=== PATIENT | male | born 1935 | race Caucasian/White ===

== ENCOUNTER 2016-11-18 23:47 | Emergency (ER) | payer OTHER, MEDICARE ==
[~2016-11-18] VITALS: Ht 188 cm; Wt 92.7 kg
[~2016-11-18 23:47] MED LIST: AMMONIUM LACTA140 GM TP; ASACOL400 MG PO; CELEBREX200 MG PO; CIPRO500 MG PO; COLACE100 MG PO; ENDOCET 5-3251 EACH PO; Flexeril PO; HYOSCYAMINE0.125 M1 SL; Kenalog,Aristocort 0 TP; NEXIUM 24HR20 MG PO; TRAMADOL HCL50 MG PO; ZANTAC150 MG PO; [UNRECOGNIZED DRUG - OTHER] TP
[2016-11-19 00:01] VITALS: BP 154/90
[2016-11-19 01:22] LABS: MCH 30.8 PG (29.0-34.0); MCHC 34.1 G/DL (30.0-36.0); MCV 90.3 FL (86-99); MEAN PLAT.VOLUME 10.9 uM^3 (9.0-12.4); PLATELET COUNT 191 K/uL (156-360); RBC DIS.WIDTH-CV 12.6 % (11.8-14.6); RBC DIS.WIDTH-SD 42.1 % (39-53); RED BLOOD COUNT 4.32 M/uL (4.00-5.50); WHITE BLOOD COUNT 8.9 K/uL (4.1-10.2)
[2016-11-19 01:37] LABS: CHLORIDE 102 mEq/L (99-109); POTASSIUM 4.6 mEq/L (3.7-5.4); SODIUM 134 mEq/L (136-147)
[2016-11-19 01:39] LABS: GLUCOSE 122 mg/dL (70-99)
[2016-11-19 01:40] LABS: ANION GAP 9 MEQ/L (2-14)
[2016-11-19 01:41] LABS: TOTAL BILIRUBIN 0.4 mg/dL (0.0-1.0)
[2016-11-19 01:42] LABS: ALKALINE PHOSPHATASE 79 IU/L (3-129)
[2016-11-19 01:43] LABS: GFR ESTIMATE (CALCULATED) > 59 mL/min/
[2016-11-19 01:44] LABS: UREA NITROGEN (BUN) 22 mg/dL (9-23)
[2016-11-19 01:46] LABS: LIPASE 19 U/L (1.0-51.0)
[2016-11-19 01:48] LABS: ADD MIUA? YES; BILIRUBIN NEGATIVE; BLOOD NEGATIVE; COLOR YELLOW ((YELLOW)); GLUCOSE (STRIP) NEGATIVE; KETONES NEGATIVE; LEUKOCYTES NEGATIVE; NITRITE NEGATIVE; PROTEIN (STRIP) NEGATIVE; SPECIFIC GRAVITY 1.024 (1.000-1.030); UROBILINOGEN 0.2 MG/DL (0.2-1.0)
[2016-11-19 02:06] LABS: BACTERIA RARE /HPF; EPITHELIAL CELLS NONE SEEN /HPF; MUCUS TRACE /LPF; RED BLOOD CELLS 0-5 /HPF (0-5); UCUL ADDED? NO; WHITE BLOOD CELLS 0-5 /HPF (0-5)
[2016-11-19] MEDS ORDERED: BENTYL20 MG PO (03:04)
== END 2016-11-19 03:26 | disposition home or self-care (01) ==
LOC: EME 23:47
PROVIDERS: Emergency Medicine
DX: R10.84 Generalized abdominal pain (principal); K58.9 Irritable bowel syndrome, unspecified; I10 Essential (primary) hypertension; K57.30 Diverticulosis of large intestine without perforation or abscess without bleeding; K44.9 Diaphragmatic hernia without obstruction or gangrene; Z98.1 Arthrodesis status; Z87.891 Personal history of nicotine dependence
CPT/HCPCS: 74177; 80053; 81003; 83605; 83690; 85027; 99281; 99285; J2405; J7030

== ENCOUNTER 2016-12-18 18:29 | Emergency (ER) | payer OTHER, MEDICARE ==
[~2016-12-18] VITALS: Ht 188 cm; Wt 91.1 kg
[~2016-12-18 18:29] MED LIST changes: +BENTYL20 MG PO
[2016-12-18 19:17] LABS: HEMATOCRIT 38.2 % (38.0-50.0); MCH 30.8 PG (29.0-34.0); MCHC 35.1 G/DL (30.0-36.0); MCV 87.8 FL (86-99); MEAN PLAT.VOLUME 10.3 uM^3 (9.0-12.4); PLATELET COUNT 197 K/uL (156-360); RBC DIS.WIDTH-CV 12.9 % (11.8-14.6); RBC DIS.WIDTH-SD 41.5 % (39-53); RED BLOOD COUNT 4.35 M/uL (4.00-5.50); WHITE BLOOD COUNT 9.4 K/uL (4.1-10.2)
[2016-12-18 19:25] LABS: CHLORIDE 96 mEq/L (99-109); POTASSIUM 3.9 mEq/L (3.7-5.4); SODIUM 129 mEq/L (136-147)
[2016-12-18 19:26] LABS: GLUCOSE 101 mg/dL (70-99)
[2016-12-18 19:28] LABS: ANION GAP 14 MEQ/L (2-14)
[2016-12-18 19:30] LABS: GFR ESTIMATE (CALCULATED) > 59 mL/min/
[2016-12-18 19:31] LABS: UREA NITROGEN (BUN) 16 mg/dL (9-23)
[2016-12-18 20:19] LABS: ADD MIUA? YES; BILIRUBIN NEGATIVE; BLOOD NEGATIVE; COLOR YELLOW ((YELLOW)); GLUCOSE (STRIP) NEGATIVE; KETONES 20; LEUKOCYTES NEGATIVE; NITRITE NEGATIVE; PROTEIN (STRIP) NEGATIVE; SPECIFIC GRAVITY 1.018 (1.000-1.030); UROBILINOGEN 0.2 MG/DL (0.2-1.0)
[2016-12-18 20:20] LABS: BACTERIA NONE SEEN /HPF; EPITHELIAL CELLS RARE /HPF; MUCUS TRACE /LPF; RED BLOOD CELLS 0-5 /HPF (0-5); WHITE BLOOD CELLS 0-5 /HPF (0-5)
[2016-12-18] MEDS ORDERED: BENTYL20 MG PO (23:58)
[2016-12-19 02:10] VITALS: BP 113/69
== END 2016-12-19 02:28 | disposition home or self-care (01) ==
LOC: EME 18:29
PROVIDERS: Nurse Practitioner Family
PROC: 3E0234Z Introduction of Serum, Toxoid and Vaccine into Muscle, Percutaneous Approach (ICD-10-PCS; principal; 2016-12-18)
DX: E86.0 Dehydration (principal); K62.89 Other specified diseases of anus and rectum; R10.32 Left lower quadrant pain; S40.029A Contusion of unspecified upper arm, initial encounter; Z23 Encounter for immunization; W18.30XA Fall on same level, unspecified, initial encounter; Y93.01 Activity, walking, marching and hiking; K21.9 Gastro-esophageal reflux disease without esophagitis; Z87.891 Personal history of nicotine dependence; Z88.0 Allergy status to penicillin
CPT/HCPCS: 74177; 80048; 81003; 85027; 99281; 99285; J1885; J3010; J7030

== ENCOUNTER 2016-12-28 18:34 | Inpatient (IN) | payer OTHER, MEDICARE ==
[~2016-12-28] VITALS: Ht 188 cm; Wt 101.3 kg
[2016-12-28 19:51] LABS: EOSINOPHIL (%) 0.6 % (0-5); EOSINOPHIL COUNT 0.1 K/uL (0-0.3); HEMATOCRIT 36.1 % (38.0-50.0); IMMATURE GRANULOCYTE (%) 0.4 % (0.0-0.7); INSTRUMENT ABS NEUTROPHIL CT 5.7 K/uL; LYMPHOCYTE COUNT 2.3 K/uL (1.0-2.8); MCH 31.2 PG (29.0-34.0); MCV 86.6 FL (86-99); MEAN PLAT.VOLUME 9.6 uM^3 (9.0-12.4); MONOCYTE (%) 10.4 % (3-12); MONOCYTE COUNT 0.9 K/uL (0-0.8); NEUTROPHIL (%) 62.9 % (45-76); NEUTROPHIL COUNT 5.7 K/uL (1.8-6.4); PLATELET COUNT 212 K/uL (156-360); RBC DIS.WIDTH-CV 13.1 % (11.8-14.6); RBC DIS.WIDTH-SD 41.1 % (39-53); RED BLOOD COUNT 4.17 M/uL (4.00-5.50); WHITE BLOOD COUNT 9.1 K/uL (4.1-10.2)
[2016-12-28 19:53] LABS: ADD MIUA? YES; BILIRUBIN NEGATIVE; BLOOD NEGATIVE; COLOR YELLOW ((YELLOW)); GLUCOSE (STRIP) NEGATIVE; KETONES 20; LEUKOCYTES NEGATIVE; NITRITE NEGATIVE; PROTEIN (STRIP) 30; UROBILINOGEN 0.2 MG/DL (0.2-1.0)
[2016-12-28 20:01] LABS: CHLORIDE 93 mEq/L (99-109); POTASSIUM 3.8 mEq/L (3.7-5.4); SODIUM 126 mEq/L (136-147)
[2016-12-28 20:03] LABS: GLUCOSE 96 mg/dL (70-99)
[2016-12-28 20:04] LABS: ANION GAP 16 MEQ/L (2-14)
[2016-12-28 20:04] LABS: BACTERIA NONE SEEN /HPF; EPITHELIAL CELLS RARE /HPF; MUCUS TRACE /LPF; RED BLOOD CELLS 0-5 /HPF (0-5); UCUL ADDED? NO; WHITE BLOOD CELLS 0-5 /HPF (0-5)
[2016-12-28 20:05] LABS: TOTAL BILIRUBIN 0.8 mg/dL (0.0-1.0)
[2016-12-28 20:07] LABS: ALKALINE PHOSPHATASE 85 IU/L (3-129); GFR ESTIMATE (CALCULATED) > 59 mL/min/
[2016-12-28 20:08] LABS: UREA NITROGEN (BUN) 13 mg/dL (9-23)
[2016-12-28 20:09] LABS: DIRECT BILIRUBIN 0.3 mg/dL (0.0-0.3)
[2016-12-28 20:13] LABS: TROP-I INTERPRETATION NEGATIVE; TROPONIN-I < 0.01 ng/mL (0.0-0.30)
[2016-12-28] MEDS ORDERED: BENTYL20 MG PO (23:16)
[2016-12-28] MEDS ORDERED: GABAPENTIN100 MG PO (23:17)
[2016-12-28] MEDS ORDERED: CELEXA10 MG PO (23:18)
[2016-12-28] MEDS ORDERED: PHAZYME250 MG PO (23:19)
[2016-12-29] VITALS (7 sets, daily range): BP systolic 119–151; BP diastolic 59–84
[2016-12-29 04:57] LABS: CHLORIDE 101 mEq/L (99-109); POTASSIUM 3.7 mEq/L (3.7-5.4); SODIUM 128 mEq/L (136-147)
[2016-12-29 04:59] LABS: GLUCOSE 95 mg/dL (70-99)
[2016-12-29 05:00] LABS: ANION GAP 6 MEQ/L (2-14)
[2016-12-29 05:03] LABS: GFR ESTIMATE (CALCULATED) > 59 mL/min/; UREA NITROGEN (BUN) 10 mg/dL (9-23)
[2016-12-30 04:28] VITALS: BP 132/64
[2016-12-30 06:24] LABS: ANION GAP 5 MEQ/L (2-14); CHLORIDE 99 MEQ/L (99-109); GFR ESTIMATE (CALCULATED) > 59 mL/min/; GLUCOSE 94 mg/dL (70-99); SAMPLE HEMOLYSIS CHECK 0; SAMPLE ICTERIC CHECK 0; SAMPLE LIPEMIA CHECK 0; SODIUM 129 MEQ/L (136-147); UREA NITROGEN (BUN) 8 mg/dL (9-23)
[2016-12-30 07:45] VITALS: BP 159/75
[2016-12-30 11:44] VITALS: BP 123/68
[2016-12-30] MEDS ORDERED: TYLENOL REGULA325 MG PO (16:27)
[2016-12-30] MEDS ORDERED: NABI650T PO (16:28)
[2016-12-30 19:36] VITALS: BP 151/74
[2016-12-30 23:20] VITALS: BP 137/70
[2016-12-31 04:25] VITALS: BP 122/66
[2016-12-31 06:10] LABS: ANION GAP 8 MEQ/L (2-14); CHLORIDE 101 MEQ/L (99-109); GFR ESTIMATE (CALCULATED) > 59 mL/min/; GLUCOSE 97 mg/dL (70-99); POTASSIUM 3.7 MEQ/L (3.7-5.4); SAMPLE HEMOLYSIS CHECK 0; SAMPLE ICTERIC CHECK 0; SAMPLE LIPEMIA CHECK 0; SODIUM 133 MEQ/L (136-147); UREA NITROGEN (BUN) 7 mg/dL (9-23)
[2016-12-31 08:18] VITALS: BP 122/74
[2016-12-31 11:01] VITALS: BP 126/66
[2016-12-31 15:00] VITALS: BP 142/81
[2016-12-31] MEDS ORDERED: CITRUCEL907 G1 PO (18:49)
[2016-12-31] MEDS ORDERED: TRAZODONE HCL50 MG PO (19:00)
== END 2016-12-31 20:04 | DRG 641 ==
LOC: DELPENDDIS → EME 18:34 → 4EAST 23:13 → EDOF 23:13 → ENRESERV 23:14 → 4EAST 12-29 00:41 → ENPENDDIS 12-30 → ENRESERV 12-30 15:55 → CANRESERV 12-30 16:37 → 4EAST 12-31 20:04
PROVIDERS: Emergency Medicine; Family Medicine Sports Medicine
DX: E87.1 Hypo-osmolality and hyponatremia (principal); E87.79 Other fluid overload; E86.0 Dehydration; E87.2 Acidosis; R26.81 Unsteadiness on feet; D69.6 Thrombocytopenia, unspecified; G20 Parkinson's disease; F03.90 Unspecified dementia, unspecified severity, without behavioral disturbance, psychotic disturbance, mood disturbance, and anxiety; S60.229A Contusion of unspecified hand, initial encounter; W19.XXXA Unspecified fall, initial encounter; I10 Essential (primary) hypertension; I25.10 Atherosclerotic heart disease of native coronary artery without angina pectoris; K21.9 Gastro-esophageal reflux disease without esophagitis; K22.70 Barrett's esophagus without dysplasia; G89.29 Other chronic pain; K59.00 Constipation, unspecified; N40.0 Benign prostatic hyperplasia without lower urinary tract symptoms; N31.9 Neuromuscular dysfunction of bladder, unspecified; K58.9 Irritable bowel syndrome, unspecified; R33.9 Retention of urine, unspecified; E78.5 Hyperlipidemia, unspecified; M19.90 Unspecified osteoarthritis, unspecified site; F32.9 Major depressive disorder, single episode, unspecified; F41.9 Anxiety disorder, unspecified; R10.9 Unspecified abdominal pain; R14.0 Abdominal distension (gaseous); Z87.11 Personal history of peptic ulcer disease; Z87.891 Personal history of nicotine dependence; Z98.1 Arthrodesis status
CPT/HCPCS: 70450; 71020; 74177; 80048; 80076; 81003; 83605; 83880; 84484; 85025; 97530 GP; 99281; 99285; J1650; J7030

== ENCOUNTER 2017-07-03 10:47 | Emergency (ER) | payer OTHER, MEDICARE ==
[~2017-07-03] VITALS: Ht 188 cm; Wt 89.3 kg
[~2017-07-03 10:47] MED LIST changes: +CELEXA10 MG PO; +CITRUCEL907 G1 PO; +GABAPENTIN100 MG PO; +NABI650T PO; +PHAZYME250 MG PO; +TRAZODONE HCL50 MG PO; +TYLENOL REGULA325 MG PO
[2017-07-03 11:31] LABS: HEMATOCRIT 39.7 % (38.0-50.0); HEMOGLOBIN 13.9 G/DL (12.5-16.6); MCH 31.7 PG (29.0-34.0); MCV 90.6 FL (86-99); RBC DIS.WIDTH-CV 12.8 % (11.8-14.6); RBC DIS.WIDTH-SD 42.5 % (39-53); RED BLOOD COUNT 4.38 M/uL (4.00-5.50); WHITE BLOOD COUNT 7.9 K/uL (4.1-10.2)
[2017-07-03 11:41] LABS: ALBUMIN 4.3 g/dL (3.2-4.8); CHLORIDE 98 mEq/L (99-109); POTASSIUM 3.9 mEq/L (3.7-5.4); SODIUM 131 mEq/L (136-147)
[2017-07-03 11:43] LABS: GLUCOSE 97 mg/dL (70-99)
[2017-07-03 11:44] LABS: TOTAL PROTEIN 6.8 g/dL (6.4-8.3)
[2017-07-03 11:45] LABS: TOTAL BILIRUBIN 1.1 mg/dL (0.0-1.0)
[2017-07-03 11:47] LABS: ALKALINE PHOSPHATASE 87 IU/L (3-129); GFR ESTIMATE (CALCULATED) > 59 mL/min/ (58.99-99999)
[2017-07-03 11:48] LABS: UREA NITROGEN (BUN) 17 mg/dL (9-23)
[2017-07-03 11:49] LABS: AST (GOT) 24 IU/L (2-34)
[2017-07-03 11:50] LABS: ALT (GPT) 20 IU/L (3-49); LIPASE 19 U/L (1.0-51.0)
[2017-07-03 12:17] LABS: PLAT.SUFFICIENCY ADEQUATE; PLATELET COUNT 192 K/uL (156-360)
[2017-07-03 13:08] LABS: APPEARANCE CLEAR ((CLEAR)); BILIRUBIN NEGATIVE; BLOOD NEGATIVE; COLOR YELLOW ((YELLOW)); GLUCOSE (STRIP) NEGATIVE; KETONES 20; LEUKOCYTES NEGATIVE; NITRITE NEGATIVE; PROTEIN (STRIP) NEGATIVE; SPECIFIC GRAVITY 1.024 (1.000-1.030); UCUL ADDED? NO; UROBILINOGEN 0.2 MG/DL (0.2-1.0)
[2017-07-03] MEDS ORDERED: BENTYL20 MG PO (14:07)
[2017-07-03 14:12] VITALS: BP 137/85
== END 2017-07-03 14:42 | disposition home or self-care (01) ==
LOC: EME 10:47
DX: R10.9 Unspecified abdominal pain (principal); K21.9 Gastro-esophageal reflux disease without esophagitis; K58.9 Irritable bowel syndrome, unspecified; Z87.891 Personal history of nicotine dependence; Z90.49 Acquired absence of other specified parts of digestive tract; Z98.1 Arthrodesis status; Z88.0 Allergy status to penicillin
CPT/HCPCS: 74177; 80053; 81003; 83690; 85027; 99281; 99285; J1885; J7030

== ENCOUNTER 2017-08-11 12:18 | Emergency (ER) | payer OTHER, MEDICARE ==
[~2017-08-11] VITALS: Ht 96.5 cm; Wt 87.3 kg
[2017-08-11 14:35] LABS: HEMATOCRIT 40.6 % (38.0-50.0); HEMOGLOBIN 14.5 G/DL (12.5-16.6); MCH 32.2 PG (29.0-34.0); MCHC 35.7 G/DL (30.0-36.0); PLATELET COUNT 221 K/uL (156-360); RBC DIS.WIDTH-CV 13.2 % (11.8-14.6); RBC DIS.WIDTH-SD 43.7 % (39-53); WHITE BLOOD COUNT 9.6 K/uL (4.1-10.2)
[2017-08-11 14:39] LABS: MCV 90.2 FL (86-99)
[2017-08-11 14:49] LABS: ALBUMIN 4.4 g/dL (3.2-4.8)
[2017-08-11 14:50] LABS: CHLORIDE 101 mEq/L (99-109); POTASSIUM 3.7 mEq/L (3.7-5.4); SODIUM 136 mEq/L (136-147)
[2017-08-11 14:52] LABS: GLUCOSE 95 mg/dL (70-99); TOTAL PROTEIN 7.4 g/dL (6.4-8.3)
[2017-08-11 14:54] LABS: TOTAL BILIRUBIN 0.9 mg/dL (0.0-1.0)
[2017-08-11 14:55] LABS: ALKALINE PHOSPHATASE 82 IU/L (3-129)
[2017-08-11 14:56] LABS: GFR ESTIMATE (CALCULATED) > 59 mL/min/ (58.99-99999)
[2017-08-11 14:57] LABS: AST (GOT) 28 IU/L (2-34); UREA NITROGEN (BUN) 11 mg/dL (9-23)
[2017-08-11 14:58] LABS: ALT (GPT) 25 IU/L (3-49)
[2017-08-11 16:59] LABS: APPEARANCE CLEAR ((CLEAR)); BILIRUBIN NEGATIVE; BLOOD NEGATIVE; COLOR YELLOW ((YELLOW)); GLUCOSE (STRIP) NEGATIVE; KETONES 20; LEUKOCYTES NEGATIVE; NITRITE NEGATIVE; PROTEIN (STRIP) NEGATIVE; SPECIFIC GRAVITY 1.013 (1.000-1.030); UCUL ADDED? NO; UROBILINOGEN 0.2 MG/DL (0.2-1.0)
[2017-08-11 17:45] VITALS: BP 136/80
== END 2017-08-11 17:45 | disposition home or self-care (01) ==
LOC: EME 12:18
PROVIDERS: Emergency Medicine
DX: R10.84 Generalized abdominal pain (principal); K21.9 Gastro-esophageal reflux disease without esophagitis; K58.9 Irritable bowel syndrome, unspecified; Z90.49 Acquired absence of other specified parts of digestive tract; Z88.0 Allergy status to penicillin; Z87.891 Personal history of nicotine dependence
CPT/HCPCS: 74177; 80053; 81003; 85027; 99281; 99285; J7030

== ENCOUNTER 2017-08-20 16:57 | Observation (INO) | payer OTHER, MEDICARE ==
[~2017-08-20] VITALS: Ht 188 cm; Wt 90.3 kg
[2017-08-20 17:36] LABS: BASOPHIL (%) 0.4 % (0-1); EOSINOPHIL (%) 1.5 % (0-5); EOSINOPHIL COUNT 0.1 K/uL (0-0.3); HEMATOCRIT 36.3 % (38.0-50.0); HEMOGLOBIN 12.9 G/DL (12.5-16.6); IMMATURE GRANULOCYTE (%) 0.4 % (0.0-0.7); LYMPHOCYTE (%) 34.8 % (15-42); LYMPHOCYTE COUNT 2.4 K/uL (1.0-2.8); MCH 32.3 PG (29.0-34.0); MCHC 35.5 G/DL (30.0-36.0); MCV 90.8 FL (86-99); MONOCYTE (%) 10.1 % (3-12); MONOCYTE COUNT 0.7 K/uL (0-0.8); NEUTROPHIL (%) 52.8 % (45-76); NEUTROPHIL COUNT 3.6 K/uL (1.8-6.4); PLATELET COUNT 188 K/uL (156-360); RBC DIS.WIDTH-CV 13.5 % (11.8-14.6); RBC DIS.WIDTH-SD 45.7 % (39-53); WHITE BLOOD COUNT 6.8 K/uL (4.1-10.2)
[2017-08-20 17:47] LABS: CHLORIDE 98 mEq/L (99-109); POTASSIUM 3.6 mEq/L (3.7-5.4); SODIUM 133 mEq/L (136-147)
[2017-08-20 17:49] LABS: GLUCOSE 100 mg/dL (70-99); TOTAL PROTEIN 6.5 g/dL (6.4-8.3)
[2017-08-20 17:51] LABS: TOTAL BILIRUBIN 0.4 mg/dL (0.0-1.0)
[2017-08-20 17:53] LABS: ALKALINE PHOSPHATASE 75 IU/L (3-129); CREATININE 0.8 mg/dL (0.6-1.3); GFR ESTIMATE (CALCULATED) > 59 mL/min/ (58.99-99999)
[2017-08-20 17:54] LABS: UREA NITROGEN (BUN) 14 mg/dL (9-23)
[2017-08-20 17:55] LABS: AST (GOT) 20 IU/L (2-34)
[2017-08-20 17:56] LABS: ALT (GPT) 20 IU/L (3-49); LIPASE 16 U/L (1.0-51.0)
[2017-08-20 18:38] LABS: APPEARANCE CLEAR ((CLEAR)); BILIRUBIN NEGATIVE; BLOOD NEGATIVE; COLOR YELLOW ((YELLOW)); GLUCOSE (STRIP) NEGATIVE; KETONES NEGATIVE; LEUKOCYTES NEGATIVE; NITRITE NEGATIVE; PROTEIN (STRIP) NEGATIVE; SPECIFIC GRAVITY 1.011 (1.000-1.030); UCUL ADDED? NO; UROBILINOGEN 0.2 MG/DL (0.2-1.0)
[2017-08-20] MEDS ORDERED: BENTYL10 MG PO (19:56)
[2017-08-20] MEDS ORDERED: TRAZODONE HCL50 MG PO (19:58)
[2017-08-20] MEDS ORDERED: CLONAZEPAM0.25 MG PO (19:59)
[2017-08-20] MEDS ORDERED: ENDOCET 5-3251 EACH PO (19:59)
[2017-08-20] MEDS ORDERED: KENALOG,ARISTOC80 GM TP (20:00)
[2017-08-20] MEDS ORDERED: MIRALAX17 GM PO (20:00)
[2017-08-20] MEDS ORDERED: ACID REFLUX PO (20:01)
[2017-08-20 21:32] VITALS: BP 122/74
[2017-08-21 00:23] VITALS: BP 124/57
[2017-08-21 03:22] VITALS: BP 114/56
[2017-08-21 07:25] VITALS: BP 104/63
[2017-08-21 11:56] VITALS: BP 132/73
[2017-08-21 15:46] VITALS: BP 158/75
[2017-08-21 23:20] VITALS: BP 160/87
[2017-08-22 06:35] LABS: CHLORIDE 100 MEQ/L (99-109); CREATININE 0.8 MG/DL (0.6-1.3); GFR ESTIMATE (CALCULATED) > 59 mL/min/ (58.99-99999); GLUCOSE 122 mg/dL (70-99); POTASSIUM 3.9 MEQ/L (3.7-5.4); SODIUM 132 MEQ/L (136-147); UREA NITROGEN (BUN) 9 mg/dL (9-23)
[2017-08-22 07:40] VITALS: BP 145/80
[2017-08-22] MEDS ORDERED: METOPROLOL SUCC25 MG PO (12:00)
[2017-08-22 15:35] VITALS: BP 151/71
[2017-08-22 15:42] VITALS: BP 123/65
[2017-08-23] VITALS: BP 148/72
[2017-08-23 06:49] LABS: CHLORIDE 98 MEQ/L (99-109); CREATININE 0.8 MG/DL (0.6-1.3); GFR ESTIMATE (CALCULATED) > 59 mL/min/ (58.99-99999); GLUCOSE 104 mg/dL (70-99); POTASSIUM 4.1 MEQ/L (3.7-5.4); SODIUM 131 MEQ/L (136-147); UREA NITROGEN (BUN) 11 mg/dL (9-23)
[2017-08-23 08:59] VITALS: BP 118/65
[2017-08-23 16:58] VITALS: BP 133/72
[2017-08-23 23:55] VITALS: BP 123/65
[2017-08-24 07:22] LABS: CHLORIDE 97 MEQ/L (99-109); CREATININE 0.8 MG/DL (0.6-1.3); GFR ESTIMATE (CALCULATED) > 59 mL/min/ (58.99-99999); GLUCOSE 96 mg/dL (70-99); POTASSIUM 4.8 MEQ/L (3.7-5.4); SODIUM 130 MEQ/L (136-147); UREA NITROGEN (BUN) 13 mg/dL (9-23)
[2017-08-24 23:56] VITALS: BP 132/78
[2017-08-25 07:39] LABS: CHLORIDE 93 MEQ/L (99-109); CREATININE 0.6 MG/DL (0.6-1.3); GFR ESTIMATE (CALCULATED) > 59 mL/min/ (58.99-99999); GLUCOSE 93 mg/dL (70-99); POTASSIUM 4.3 MEQ/L (3.7-5.4); SODIUM 126 MEQ/L (136-147); UREA NITROGEN (BUN) 14 mg/dL (9-23)
[2017-08-25 08:13] VITALS: BP 127/63
[2017-08-25 15:31] VITALS: BP 139/83
[2017-08-25 23:39] VITALS: BP 122/61
[2017-08-26 06:46] LABS: CHLORIDE 93 MEQ/L (99-109); CREATININE 0.8 MG/DL (0.6-1.3); GFR ESTIMATE (CALCULATED) > 59 mL/min/ (58.99-99999); GLUCOSE 102 mg/dL (70-99); POTASSIUM 4.3 MEQ/L (3.7-5.4); SODIUM 127 MEQ/L (136-147); UREA NITROGEN (BUN) 16 mg/dL (9-23)
[2017-08-26 07:36] VITALS: BP 115/77
[2017-08-26] MEDS ORDERED: FUROSEMIDE20 MG PO (10:27)
[2017-08-26] MEDS ORDERED: K-DUR20 MEQ PO (10:27)
[2017-08-26] MEDS ORDERED: SODIUM CHLORIDE1 G1 PO (10:27)
[2017-08-26] MEDS ORDERED: PEPCID20 MG PO (12:13)
== END 2017-08-26 11:43 ==
LOC: EME → EDBD 16:57 → 3EAST 19:47 → EDOF 19:47 → 3EAST 19:47 → ENRESERV 19:51 → 3EAST 20:42
PROVIDERS: Emergency Medicine; Family Medicine Sports Medicine
DX: E22.2 Syndrome of inappropriate secretion of antidiuretic hormone (principal); K58.9 Irritable bowel syndrome, unspecified; E78.5 Hyperlipidemia, unspecified; K21.9 Gastro-esophageal reflux disease without esophagitis; F32.9 Major depressive disorder, single episode, unspecified; K62.89 Other specified diseases of anus and rectum; G83.4 Cauda equina syndrome; R53.1 Weakness; R41.82 Altered mental status, unspecified; Z87.11 Personal history of peptic ulcer disease; F41.9 Anxiety disorder, unspecified; G89.29 Other chronic pain; M54.5 Low back pain; M19.90 Unspecified osteoarthritis, unspecified site; Z90.49 Acquired absence of other specified parts of digestive tract; Z82.49 Family history of ischemic heart disease and other diseases of the circulatory system; Z82.0 Family history of epilepsy and other diseases of the nervous system
CPT/HCPCS: 70450; 71045; 74177; 80048; 80053; 81003; 83690; 85025; 87493; 97530 GO; 97530 GP; 99281; 99285; G0378; G8978 GP CJ; G8979 GP CH; J1630; J1650; J7040

== ENCOUNTER 2017-08-26 09:18 | Inpatient (IN) | payer OTHER, MEDICARE ==
[~2017-08-26] VITALS: Ht 188 cm; Wt 86.5 kg
[~2017-08-26 09:18] MED LIST changes: +ACID REFLUX PO; +BENTYL10 MG PO; +CLONAZEPAM0.25 MG PO; +KENALOG,ARISTOC80 GM TP; +METOPROLOL SUCC25 MG PO; +MIRALAX17 GM PO
[2017-08-26] MEDS ORDERED: K-DUR20 MEQ PO (10:27)
[2017-08-26] MEDS ORDERED: SODIUM CHLORIDE1 G1 PO (10:27)
[2017-08-26] MEDS ORDERED: FUROSEMIDE20 MG PO (10:27)
[2017-08-26] MEDS ORDERED: PEPCID20 MG PO (12:13)
[2017-08-26 12:21] VITALS: BP 136/77
[2017-08-26 15:50] VITALS: BP 123/60
[2017-08-26 17:23] LABS: APPEARANCE CLEAR ((CLEAR)); BILIRUBIN NEGATIVE; BLOOD NEGATIVE; COLOR YELLOW ((YELLOW)); GLUCOSE (STRIP) NEGATIVE; KETONES NEGATIVE; LEUKOCYTES NEGATIVE; NITRITE NEGATIVE; PROTEIN (STRIP) NEGATIVE; SPECIFIC GRAVITY 1.015 (1.000-1.030)
[2017-08-26 22:19] VITALS: BP 117/65
[2017-08-27 05:11] VITALS: BP 134/71
[2017-08-27 06:56] LABS: HEMATOCRIT 32.1 % (38.0-50.0); HEMOGLOBIN 11.3 G/DL (12.5-16.6); MCH 32.3 PG (29.0-34.0); MCHC 35.2 G/DL (30.0-36.0); MCV 91.7 FL (86-99); PLATELET COUNT 182 K/uL (156-360); RBC DIS.WIDTH-CV 13.2 % (11.8-14.6); RBC DIS.WIDTH-SD 43.4 % (39-53); WHITE BLOOD COUNT 4.9 K/uL (4.1-10.2)
[2017-08-27 07:17] LABS: ALBUMIN 3.3 G/DL (3.2-4.8); ALKALINE PHOSPHATASE 60 IU/L (3-129); ALT (GPT) 15 IU/L (3-49); AST (GOT) 15 IU/L (2-34); CHLORIDE 92 MEQ/L (99-109); CREATININE 0.7 MG/DL (0.6-1.3); GFR ESTIMATE (CALCULATED) > 59 mL/min/ (58.99-99999); GLUCOSE 99 mg/dL (70-99); POTASSIUM 4.2 MEQ/L (3.7-5.4); SODIUM 125 MEQ/L (136-147); TOTAL BILIRUBIN 0.6 MG/DL (0.0-1.0); TOTAL PROTEIN 5.2 G/DL (6.4-8.3); UREA NITROGEN (BUN) 13 mg/dL (9-23)
[2017-08-27 15:28] VITALS: BP 107/63
[2017-08-28 04:53] VITALS: BP 102/64
[2017-08-28 06:26] LABS: BASOPHIL (%) 0.9 % (0-1); BASOPHIL COUNT 0.1 K/uL (0-0.1); EOSINOPHIL (%) 1.2 % (0-5); EOSINOPHIL COUNT 0.1 K/uL (0-0.3); HEMATOCRIT 34.6 % (38.0-50.0); HEMOGLOBIN 11.9 G/DL (12.5-16.6); IMMATURE GRANULOCYTE (%) 0.4 % (0.0-0.7); LYMPHOCYTE (%) 33.2 % (15-42); LYMPHOCYTE COUNT 1.9 K/uL (1.0-2.8); MCH 31.6 PG (29.0-34.0); MCHC 34.4 G/DL (30.0-36.0); MONOCYTE (%) 14.1 % (3-12); MONOCYTE COUNT 0.8 K/uL (0-0.8); NEUTROPHIL (%) 50.2 % (45-76); NEUTROPHIL COUNT 2.9 K/uL (1.8-6.4); PLATELET COUNT 202 K/uL (156-360); RBC DIS.WIDTH-CV 13.2 % (11.8-14.6); RBC DIS.WIDTH-SD 44.8 % (39-53); RED BLOOD COUNT 3.76 M/uL (4.00-5.50); WHITE BLOOD COUNT 5.7 K/uL (4.1-10.2)
[2017-08-28 06:49] LABS: CHLORIDE 96 MEQ/L (99-109); CREATININE 0.7 MG/DL (0.6-1.3); GFR ESTIMATE (CALCULATED) > 59 mL/min/ (58.99-99999); GLUCOSE 97 mg/dL (70-99); POTASSIUM 4.1 MEQ/L (3.7-5.4); SODIUM 129 MEQ/L (136-147); UREA NITROGEN (BUN) 10 mg/dL (9-23); URIC ACID 4.8 mg/dL (3.1-9.2)
[2017-08-28 16:56] VITALS: BP 125/81
[2017-08-29 04:21] VITALS: BP 92/55
[2017-08-29 07:04] VITALS: BP 121/68
[2017-08-29 07:31] LABS: CHLORIDE 100 MEQ/L (99-109); CREATININE 0.8 MG/DL (0.6-1.3); GFR ESTIMATE (CALCULATED) > 59 mL/min/ (58.99-99999); GLUCOSE 109 mg/dL (70-99); POTASSIUM 4.2 MEQ/L (3.7-5.4); SODIUM 138 MEQ/L (136-147); UREA NITROGEN (BUN) 13 mg/dL (9-23)
[2017-08-30 05:00] VITALS: BP 147/70
[2017-08-30 06:26] LABS: CHLORIDE 102 MEQ/L (99-109); CREATININE 0.8 MG/DL (0.6-1.3); GFR ESTIMATE (CALCULATED) > 59 mL/min/ (58.99-99999); GLUCOSE 104 mg/dL (70-99); POTASSIUM 4.1 MEQ/L (3.7-5.4); SODIUM 137 MEQ/L (136-147); UREA NITROGEN (BUN) 16 mg/dL (9-23)
[2017-08-30 15:16] VITALS: BP 114/60
[2017-08-31 05:16] VITALS: BP 127/58
[2017-08-31 06:47] LABS: CHLORIDE 101 MEQ/L (99-109); CREATININE 0.8 MG/DL (0.6-1.3); GFR ESTIMATE (CALCULATED) > 59 mL/min/ (58.99-99999); GLUCOSE 87 mg/dL (70-99); POTASSIUM 4.3 MEQ/L (3.7-5.4); SODIUM 135 MEQ/L (136-147); UREA NITROGEN (BUN) 13 mg/dL (9-23)
[2017-08-31 15:49] VITALS: BP 135/65
[2017-09-01 04:26] VITALS: BP 147/65
[2017-09-01 06:44] LABS: CHLORIDE 99 MEQ/L (99-109); CREATININE 0.9 MG/DL (0.6-1.3); GFR ESTIMATE (CALCULATED) > 59 mL/min/ (58.99-99999); GLUCOSE 95 mg/dL (70-99); POTASSIUM 4.4 MEQ/L (3.7-5.4); SODIUM 136 MEQ/L (136-147); UREA NITROGEN (BUN) 11 mg/dL (9-23)
[2017-09-01 15:33] VITALS: BP 116/65
[2017-09-02 06:56] VITALS: BP 120/56
[2017-09-02 15:05] VITALS: BP 112/55
[2017-09-03 04:52] VITALS: BP 126/64
[2017-09-03] MEDS ORDERED: K-DUR20 MEQ PO (14:36)
[2017-09-03] MEDS ORDERED: THERAGRAN1 TABLET PO (14:36)
[2017-09-03] MEDS ORDERED: BUSPAR5 MG PO (14:36)
[2017-09-03] MEDS ORDERED: SODIUM CHLORIDE1 G1 PO (14:36)
[2017-09-03] MEDS ORDERED: FUROSEMIDE20 MG PO (14:36)
[2017-09-03] MEDS ORDERED: METOPROLOL SUCC25 MG PO (14:36)
[2017-09-03] MEDS ORDERED: FAMOTIDINE20 MG PO (14:36)
[2017-09-03] MEDS ORDERED: TRAZODONE HCL50 MG PO (14:36)
[2017-09-03] MEDS ORDERED: POLYETHYLENE GL17 GM PO (14:36)
[2017-09-03 16:35] VITALS: BP 114/72
[2017-09-04 05:40] VITALS: BP 134/77
[2017-09-04 06:24] LABS: BASOPHIL (%) 1.3 % (0-1); BASOPHIL COUNT 0.1 K/uL (0-0.1); EOSINOPHIL (%) 2.8 % (0-5); EOSINOPHIL COUNT 0.2 K/uL (0-0.3); HEMATOCRIT 34.4 % (38.0-50.0); HEMOGLOBIN 11.3 G/DL (12.5-16.6); IMMATURE GRANULOCYTE (%) 0.4 % (0.0-0.7); LYMPHOCYTE (%) 39.1 % (15-42); LYMPHOCYTE COUNT 2.1 K/uL (1.0-2.8); MCH 31.1 PG (29.0-34.0); MCHC 32.8 G/DL (30.0-36.0); MCV 94.8 FL (86-99); MONOCYTE (%) 12.9 % (3-12); MONOCYTE COUNT 0.7 K/uL (0-0.8); NEUTROPHIL (%) 43.5 % (45-76); NEUTROPHIL COUNT 2.4 K/uL (1.8-6.4); PLATELET COUNT 189 K/uL (156-360); RBC DIS.WIDTH-CV 13.3 % (11.8-14.6); RBC DIS.WIDTH-SD 46.7 % (39-53); RED BLOOD COUNT 3.63 M/uL (4.00-5.50); WHITE BLOOD COUNT 5.4 K/uL (4.1-10.2)
[2017-09-04 07:24] LABS: CHLORIDE 102 MEQ/L (99-109); CREATININE 0.8 MG/DL (0.6-1.3); GFR ESTIMATE (CALCULATED) > 59 mL/min/ (58.99-99999); GLUCOSE 96 mg/dL (70-99); POTASSIUM 4.3 MEQ/L (3.7-5.4); SODIUM 136 MEQ/L (136-147); UREA NITROGEN (BUN) 12 mg/dL (9-23)
[2017-09-04 11:34] LABS: IRON 70 MCG/DL (35-150); TRANSFERRIN (TIBC) 213.3 mg/dL (215-380); TRANSFERRIN SATUR. 33 % (20-55)
[2017-09-04 15:26] VITALS: BP 124/67
[2017-09-05 05:05] VITALS: BP 149/72
== END 2017-09-05 13:44 | disposition home or self-care (01) | DRG 945 ==
LOC: 3WEST 09:18 → ENPENDDIS 09-06
PROVIDERS: Family Medicine Sports Medicine; Internal Medicine Nephrology; Physical Medicine & Rehabilitation Pain Medicine
PROC: F07M0ZZ Range of Motion and Joint Mobility Treatment of Musculoskeletal System - Whole Body (ICD-10-PCS; principal; 2017-08-26)
DX: R53.1 Weakness (principal); R41.82 Altered mental status, unspecified; R26.9 Unspecified abnormalities of gait and mobility; G91.2 (Idiopathic) normal pressure hydrocephalus; E83.51 Hypocalcemia; E22.2 Syndrome of inappropriate secretion of antidiuretic hormone; D69.6 Thrombocytopenia, unspecified; E87.1 Hypo-osmolality and hyponatremia; E87.79 Other fluid overload; E78.5 Hyperlipidemia, unspecified; N31.9 Neuromuscular dysfunction of bladder, unspecified; K59.00 Constipation, unspecified; K21.9 Gastro-esophageal reflux disease without esophagitis; K58.9 Irritable bowel syndrome, unspecified; F32.9 Major depressive disorder, single episode, unspecified; I25.10 Atherosclerotic heart disease of native coronary artery without angina pectoris; K59.09 Other constipation; I10 Essential (primary) hypertension; R39.11 Hesitancy of micturition; N39.0 Urinary tract infection, site not specified; G83.4 Cauda equina syndrome; N40.1 Benign prostatic hyperplasia with lower urinary tract symptoms; F41.9 Anxiety disorder, unspecified; K44.9 Diaphragmatic hernia without obstruction or gangrene; K22.70 Barrett's esophagus without dysplasia; F05 Delirium due to known physiological condition; Z90.49 Acquired absence of other specified parts of digestive tract; D64.9 Anemia, unspecified; Z88.0 Allergy status to penicillin; Z87.11 Personal history of peptic ulcer disease
CPT/HCPCS: 80048; 80053; 81003; 83540; 83935; 84300; 84466; 84550; 85025; 85027; 87077; 87086; 87186; 97110 GO; 97530 GP; J1650

== ENCOUNTER 2017-09-24 07:40 | Emergency (ER) | payer OTHER, MEDICARE ==
[~2017-09-24] VITALS: Ht 188 cm; Wt 87.7 kg
[~2017-09-24 07:40] MED LIST changes: +BUSPAR5 MG PO; +FAMOTIDINE20 MG PO; +FUROSEMIDE20 MG PO; +K-DUR20 MEQ PO; +PEPCID20 MG PO; +POLYETHYLENE GL17 GM PO; +SODIUM CHLORIDE1 G1 PO; +THERAGRAN1 TABLET PO
[2017-09-24 08:23] LABS: HEMATOCRIT 32.4 % (38.0-50.0); HEMOGLOBIN 11.4 G/DL (12.5-16.6); MCH 32.5 PG (29.0-34.0); MCHC 35.2 G/DL (30.0-36.0); MCV 92.3 FL (86-99); PLATELET COUNT 171 K/uL (156-360); RBC DIS.WIDTH-CV 12.9 % (11.8-14.6); RBC DIS.WIDTH-SD 43.7 % (39-53); RED BLOOD COUNT 3.51 M/uL (4.00-5.50)
[2017-09-24 08:26] LABS: APPEARANCE CLEAR ((CLEAR)); BILIRUBIN NEGATIVE; BLOOD NEGATIVE; COLOR YELLOW ((YELLOW)); GLUCOSE (STRIP) NEGATIVE; KETONES 5; LEUKOCYTES NEGATIVE; NITRITE NEGATIVE; PROTEIN (STRIP) NEGATIVE; SPECIFIC GRAVITY 1.012 (1.000-1.030); UROBILINOGEN 0.2 MG/DL (0.2-1.0)
[2017-09-24 08:30] LABS: CHLORIDE 98 mEq/L (99-109); POTASSIUM 3.7 mEq/L (3.7-5.4); SODIUM 130 mEq/L (136-147)
[2017-09-24 08:33] LABS: GLUCOSE 90 mg/dL (70-99); TOTAL PROTEIN 6.2 g/dL (6.4-8.3)
[2017-09-24 08:36] LABS: ALKALINE PHOSPHATASE 76 IU/L (3-129); CREATININE 0.8 mg/dL (0.6-1.3); GFR ESTIMATE (CALCULATED) > 59 mL/min/ (58.99-99999)
[2017-09-24 08:38] LABS: AST (GOT) 30 IU/L (2-34); UREA NITROGEN (BUN) 11 mg/dL (9-23)
[2017-09-24 08:39] LABS: ALT (GPT) 19 IU/L (3-49)
[2017-09-24] MEDS ORDERED: TOPROL XL25 MG PO (13:32)
[2017-09-24] MEDS ORDERED: TRAZODONE HCL50 MG PO (13:33)
[2017-09-24] MEDS ORDERED: NABI650T PO (13:34)
[2017-09-24] MEDS ORDERED: MIRALAX17 GM PO (13:39)
[2017-09-24] MEDS ORDERED: ZOLOFT50 MG PO (13:40)
[2017-09-24] MEDS ORDERED: K-DUR20 MEQ PO (13:40)
[2017-09-24 15:48] VITALS: BP 142/80
== END 2017-09-24 15:59 | disposition home or self-care (01) ==
LOC: EME 07:40
PROVIDERS: Nurse Practitioner Family
DX: R10.84 Generalized abdominal pain (principal); E87.1 Hypo-osmolality and hyponatremia; D64.9 Anemia, unspecified; G89.29 Other chronic pain; K58.9 Irritable bowel syndrome, unspecified; I10 Essential (primary) hypertension; K21.9 Gastro-esophageal reflux disease without esophagitis; Z88.0 Allergy status to penicillin; Z87.891 Personal history of nicotine dependence; Z98.1 Arthrodesis status
CPT/HCPCS: 74177; 80053; 81003; 83605; 85027; 99281; 99285; J1885; J2060; J7030

== ENCOUNTER 2017-10-12 14:34 | Emergency (ER) | payer OTHER, MEDICARE ==
[~2017-10-12] VITALS: Ht 188 cm; Wt 87.5 kg
[~2017-10-12 14:34] MED LIST changes: +TOPROL XL25 MG PO; +ZOLOFT50 MG PO
[2017-10-12 15:18] LABS: HEMATOCRIT 32.2 % (38.0-50.0); HEMOGLOBIN 11.8 G/DL (12.5-16.6); MCH 33.7 PG (29.0-34.0); MCHC 36.6 G/DL (30.0-36.0); PLATELET COUNT 193 K/uL (156-360); RBC DIS.WIDTH-CV 12.7 % (11.8-14.6); RBC DIS.WIDTH-SD 42.8 % (39-53); WHITE BLOOD COUNT 7.5 K/uL (4.1-10.2)
[2017-10-12 15:30] LABS: ALBUMIN 4.1 g/dL (3.2-4.8)
[2017-10-12 15:31] LABS: CHLORIDE 97 mEq/L (99-109); POTASSIUM 4.1 mEq/L (3.7-5.4); SODIUM 131 mEq/L (136-147)
[2017-10-12 15:33] LABS: TOTAL PROTEIN 6.4 g/dL (6.4-8.3)
[2017-10-12 15:35] LABS: GLUCOSE 88 mg/dL (70-99); TOTAL BILIRUBIN 1.1 mg/dL (0.0-1.0)
[2017-10-12 15:36] LABS: ALKALINE PHOSPHATASE 77 IU/L (3-129)
[2017-10-12 15:37] LABS: CREATININE 0.9 mg/dL (0.6-1.3); GFR ESTIMATE (CALCULATED) > 59 mL/min/ (58.99-99999)
[2017-10-12 15:38] LABS: AST (GOT) 31 IU/L (2-34); UREA NITROGEN (BUN) 19 mg/dL (9-23)
[2017-10-12 15:39] LABS: ALT (GPT) 23 IU/L (3-49)
[2017-10-12 15:43] LABS: TROP-I INTERPRETATION NEGATIVE; TROPONIN-I < 0.01 ng/mL (0.0-0.30)
[2017-10-12 17:09] VITALS: BP 124/75
== END 2017-10-12 17:10 | disposition home or self-care (01) ==
LOC: EME 14:34
PROVIDERS: Emergency Medicine
DX: R53.1 Weakness (principal); R42 Dizziness and giddiness; K21.9 Gastro-esophageal reflux disease without esophagitis; K58.9 Irritable bowel syndrome, unspecified; Z88.0 Allergy status to penicillin; Z87.891 Personal history of nicotine dependence
CPT/HCPCS: 70450; 80053; 84484; 85027; 93005; 99281; 99285; J7030

== ENCOUNTER 2017-10-20 08:50 | Emergency (ER) | payer OTHER, MEDICARE ==
[~2017-10-20] VITALS: Ht 188 cm; Wt 85.3 kg
[2017-10-20 09:37] LABS: APPEARANCE CLEAR ((CLEAR)); BILIRUBIN NEGATIVE; BLOOD NEGATIVE; COLOR AMBER ((YELLOW)); GLUCOSE (STRIP) NEGATIVE; KETONES 20; LEUKOCYTES NEGATIVE; NITRITE NEGATIVE; PROTEIN (STRIP) 100; SPECIFIC GRAVITY 1.031 (1.000-1.030)
[2017-10-20 09:48] LABS: BACTERIA RARE /HPF; EPITHELIAL CELLS RARE /HPF; MUCUS 1+ /LPF; RED BLOOD CELLS 0-5 /HPF (0-5); WHITE BLOOD CELLS 0-5 /HPF (0-5)
[2017-10-20 10:08] LABS: BASOPHIL (%) 0.6 % (0-1); EOSINOPHIL (%) 1.8 % (0-5); EOSINOPHIL COUNT 0.1 K/uL (0-0.3); HEMATOCRIT 31.1 % (38.0-50.0); HEMOGLOBIN 11.1 G/DL (12.5-16.6); IMMATURE GRANULOCYTE (%) 0.3 % (0.0-0.7); LYMPHOCYTE (%) 25.8 % (15-42); LYMPHOCYTE COUNT 1.7 K/uL (1.0-2.8); MCH 32.8 PG (29.0-34.0); MCHC 35.7 G/DL (30.0-36.0); MONOCYTE COUNT 0.8 K/uL (0-0.8); NEUTROPHIL (%) 59.5 % (45-76); NEUTROPHIL COUNT 3.9 K/uL (1.8-6.4); PLATELET COUNT 195 K/uL (156-360); RBC DIS.WIDTH-CV 12.7 % (11.8-14.6); RED BLOOD COUNT 3.38 M/uL (4.00-5.50); WHITE BLOOD COUNT 6.5 K/uL (4.1-10.2)
[2017-10-20 10:18] LABS: CHLORIDE 103 mEq/L (99-109); POTASSIUM 3.6 mEq/L (3.7-5.4); SODIUM 134 mEq/L (136-147)
[2017-10-20 10:19] LABS: GLUCOSE 85 mg/dL (70-99)
[2017-10-20 10:23] LABS: CREATININE 0.9 mg/dL (0.6-1.3); GFR ESTIMATE (CALCULATED) > 59 mL/min/ (58.99-99999)
[2017-10-20 10:24] LABS: UREA NITROGEN (BUN) 22 mg/dL (9-23)
[2017-10-20] MEDS ORDERED: BENTYL20 MG PO (13:10)
[2017-10-20 13:13] VITALS: BP 131/70
== END 2017-10-20 13:36 | disposition home or self-care (01) ==
LOC: EME 08:50
PROVIDERS: Emergency Medicine
DX: R10.2 Pelvic and perineal pain (principal); K62.89 Other specified diseases of anus and rectum; K21.9 Gastro-esophageal reflux disease without esophagitis; K58.9 Irritable bowel syndrome, unspecified; Z90.49 Acquired absence of other specified parts of digestive tract; Z88.0 Allergy status to penicillin; Z87.891 Personal history of nicotine dependence
CPT/HCPCS: 74022; 74177; 80048; 81003; 85025; 99281; 99284; J2060; J7030

== ENCOUNTER 2017-11-04 09:37 | Inpatient (IN) | payer OTHER, MEDICARE ==
[~2017-11-04] VITALS: Ht 188 cm; Wt 87.0 kg
[2017-11-04 10:29] LABS: BASOPHIL (%) 0.7 % (0-1); BASOPHIL COUNT 0.1 K/uL (0-0.1); EOSINOPHIL (%) 2.4 % (0-5); EOSINOPHIL COUNT 0.2 K/uL (0-0.3); HEMOGLOBIN 11.2 G/DL (12.5-16.6); IMMATURE GRANULOCYTE (%) 0.3 % (0.0-0.7); LYMPHOCYTE COUNT 1.6 K/uL (1.0-2.8); MCH 33.1 PG (29.0-34.0); MCV 94.7 FL (86-99); MONOCYTE (%) 9.8 % (3-12); MONOCYTE COUNT 0.7 K/uL (0-0.8); NEUTROPHIL (%) 63.8 % (45-76); NEUTROPHIL COUNT 4.3 K/uL (1.8-6.4); PLATELET COUNT 213 K/uL (156-360); RBC DIS.WIDTH-CV 12.8 % (11.8-14.6); RBC DIS.WIDTH-SD 44.2 % (39-53); RED BLOOD COUNT 3.38 M/uL (4.00-5.50); WHITE BLOOD COUNT 6.7 K/uL (4.1-10.2)
[2017-11-04 10:37] LABS: INTER. NORMALIZED RATIO 1.2
[2017-11-04 10:41] LABS: CHLORIDE 102 mEq/L (99-109); POTASSIUM 3.6 mEq/L (3.7-5.4); SODIUM 135 mEq/L (136-147)
[2017-11-04 10:43] LABS: GLUCOSE 128 mg/dL (70-99)
[2017-11-04 10:47] LABS: CREATININE 0.9 mg/dL (0.6-1.3); GFR ESTIMATE (CALCULATED) > 59 mL/min/ (58.99-99999)
[2017-11-04 10:48] LABS: UREA NITROGEN (BUN) 25 mg/dL (9-23)
[2017-11-04 11:48] LABS: C DIFF TOXIN NEGATIVE (NEGATIVE)
[2017-11-04] MEDS ORDERED: BUSPIRONE HCL5 MG PO (13:24)
[2017-11-04] MEDS ORDERED: CLONAZEPAM0.5 MG PO (13:26)
[2017-11-04] MEDS ORDERED: TRULANCE3 MG PO (13:26)
[2017-11-04] MEDS ORDERED: DICYCLOMINE HCL10 MG PO (13:27)
[2017-11-04] MEDS ORDERED: ANALPRAM HC 2.530 GM PR (13:29)
[2017-11-04] MEDS ORDERED: NIFEDIPINE/LIDOCAINE TP (13:29)
[2017-11-04] MEDS ORDERED: LAXATIVE25 MG PO (13:30)
[2017-11-04] MEDS ORDERED: NAPROSYN-EC 37375 MG PO (13:31)
[2017-11-04] MEDS ORDERED: PEPCID20 MG PO (13:32)
[2017-11-04] MEDS ORDERED: CIPRO500 MG PO (13:34)
[2017-11-04] MEDS ORDERED: METRONIDAZOLE500 MG PO (13:35)
[2017-11-04 14:07] VITALS: BP 146/69
[2017-11-04 14:33] LABS: BASOPHIL COUNT 0.1 K/uL (0-0.1); EOSINOPHIL (%) 1.3 % (0-5); EOSINOPHIL COUNT 0.1 K/uL (0-0.3); HEMATOCRIT 29.4 % (38.0-50.0); HEMOGLOBIN 10.1 G/DL (12.5-16.6); IMMATURE GRANULOCYTE (%) 0.2 % (0.0-0.7); LYMPHOCYTE (%) 29.5 % (15-42); LYMPHOCYTE COUNT 1.6 K/uL (1.0-2.8); MCH 32.3 PG (29.0-34.0); MCHC 34.4 G/DL (30.0-36.0); MCV 93.9 FL (86-99); MONOCYTE (%) 12.6 % (3-12); MONOCYTE COUNT 0.7 K/uL (0-0.8); NEUTROPHIL (%) 55.4 % (45-76); NEUTROPHIL COUNT 2.9 K/uL (1.8-6.4); PLATELET COUNT 198 K/uL (156-360); RBC DIS.WIDTH-CV 12.9 % (11.8-14.6); RBC DIS.WIDTH-SD 44.2 % (39-53); RED BLOOD COUNT 3.13 M/uL (4.00-5.50); WHITE BLOOD COUNT 5.3 K/uL (4.1-10.2)
[2017-11-04 14:42] LABS: PTT 26.6 SEC (25-37)
[2017-11-04 14:49] LABS: CHLORIDE 104 mEq/L (99-109); POTASSIUM 3.5 mEq/L (3.7-5.4)
[2017-11-04 14:50] LABS: SODIUM 134 mEq/L (136-147)
[2017-11-04 14:51] LABS: GLUCOSE 97 mg/dL (70-99)
[2017-11-04 14:54] LABS: INTER. NORMALIZED RATIO 1.3
[2017-11-04 14:55] LABS: CREATININE 0.8 mg/dL (0.6-1.3); GFR ESTIMATE (CALCULATED) > 59 mL/min/ (58.99-99999)
[2017-11-04 14:56] LABS: UREA NITROGEN (BUN) 22 mg/dL (9-23)
[2017-11-04 17:45] LABS: HEMATOCRIT 28.7 % (38.0-50.0); HEMOGLOBIN 9.9 G/DL (12.5-16.6); MCV 93.5 FL (86-99)
[2017-11-04 20:00] VITALS: BP 147/79
[2017-11-04 23:42] VITALS: BP 114/56
[2017-11-05 00:56] LABS: HEMATOCRIT 25.7 % (38.0-50.0); HEMOGLOBIN 8.8 G/DL (12.5-16.6); MCV 95.5 FL (86-99)
[2017-11-05 04:04] VITALS: BP 140/75
[2017-11-05 05:26] LABS: HEMATOCRIT 28.3 % (38.0-50.0); HEMOGLOBIN 9.2 G/DL (12.5-16.6); MCH 31.3 PG (29.0-34.0); MCHC 32.5 G/DL (30.0-36.0); MCV 96.3 FL (86-99); PLATELET COUNT 186 K/uL (156-360); RBC DIS.WIDTH-SD 45.6 % (39-53); RED BLOOD COUNT 2.94 M/uL (4.00-5.50); WHITE BLOOD COUNT 4.4 K/uL (4.1-10.2)
[2017-11-05 06:01] LABS: ALBUMIN 3.2 G/DL (3.2-4.8); ALKALINE PHOSPHATASE 67 IU/L (3-129); ALT (GPT) 26 IU/L (3-49); AST (GOT) 36 IU/L (2-34); CHLORIDE 107 MEQ/L (99-109); CREATININE 0.7 MG/DL (0.6-1.3); GFR ESTIMATE (CALCULATED) > 59 mL/min/ (58.99-99999); GLUCOSE 92 mg/dL (70-99); POTASSIUM 3.9 MEQ/L (3.7-5.4); SODIUM 136 MEQ/L (136-147); TOTAL BILIRUBIN 0.5 MG/DL (0.0-1.0); UREA NITROGEN (BUN) 15 mg/dL (9-23)
[2017-11-05 08:09] VITALS: BP 120/69
[2017-11-05 11:14] VITALS: BP 142/71
[2017-11-05 12:20] LABS: HEMATOCRIT 33.2 % (38.0-50.0); HEMOGLOBIN 11.1 G/DL (12.5-16.6); MCH 32.4 PG (29.0-34.0); MCHC 33.4 G/DL (30.0-36.0); MCV 96.8 FL (86-99); PLATELET COUNT 224 K/uL (156-360); RBC DIS.WIDTH-SD 46.4 % (39-53); RED BLOOD COUNT 3.43 M/uL (4.00-5.50); WHITE BLOOD COUNT 5.2 K/uL (4.1-10.2)
[2017-11-05 16:51] VITALS: BP 153/72
[2017-11-05 19:19] LABS: HEMATOCRIT 29.3 % (38.0-50.0); HEMOGLOBIN 9.8 G/DL (12.5-16.6); MCH 32.1 PG (29.0-34.0); MCHC 33.4 G/DL (30.0-36.0); MCV 96.1 FL (86-99); PLATELET COUNT 188 K/uL (156-360); RBC DIS.WIDTH-SD 45.9 % (39-53); RED BLOOD COUNT 3.05 M/uL (4.00-5.50); WHITE BLOOD COUNT 5.5 K/uL (4.1-10.2)
[2017-11-05 20:23] VITALS: BP 125/63
[2017-11-06 00:23] VITALS: BP 142/67
[2017-11-06 04:12] VITALS: BP 127/57
[2017-11-06 05:42] LABS: MCHC 33.3 G/DL (30.0-36.0); MCV 96.1 FL (86-99); PLATELET COUNT 167 K/uL (156-360); RBC DIS.WIDTH-CV 12.8 % (11.8-14.6); RBC DIS.WIDTH-SD 45.3 % (39-53); RED BLOOD COUNT 2.81 M/uL (4.00-5.50); WHITE BLOOD COUNT 3.7 K/uL (4.1-10.2)
[2017-11-06 07:37] VITALS: BP 119/76
[2017-11-06 12:22] VITALS: BP 122/63
[2017-11-06 16:06] VITALS: BP 127/89
[2017-11-06 18:37] LABS: HEMATOCRIT 29.8 % (38.0-50.0); HEMOGLOBIN 10.1 G/DL (12.5-16.6); MCHC 33.9 G/DL (30.0-36.0); MCV 94.3 FL (86-99); RBC DIS.WIDTH-CV 12.9 % (11.8-14.6); RBC DIS.WIDTH-SD 44.8 % (39-53); RED BLOOD COUNT 3.16 M/uL (4.00-5.50); WHITE BLOOD COUNT 5.8 K/uL (4.1-10.2)
[2017-11-06 18:54] LABS: HEMATOLOGY COMMENT 1 SN; PLAT.SUFFICIENCY ADEQUATE; PLATELET COUNT UNABLE TO REPORT K/uL (156-360)
[2017-11-06 19:43] VITALS: BP 128/60
[2017-11-07 05:29] LABS: HEMATOCRIT 24.7 % (38.0-50.0); HEMOGLOBIN 8.3 G/DL (12.5-16.6); MCH 31.8 PG (29.0-34.0); MCHC 33.6 G/DL (30.0-36.0); MCV 94.6 FL (86-99); RBC DIS.WIDTH-CV 13.1 % (11.8-14.6); RED BLOOD COUNT 2.61 M/uL (4.00-5.50); WHITE BLOOD COUNT 4.5 K/uL (4.1-10.2)
[2017-11-07 05:38] LABS: PLATELET COUNT 172 K/uL (156-360)
[2017-11-07 08:01] VITALS: BP 117/69
[2017-11-07 11:56] VITALS: BP 120/73
[2017-11-07 16:25] VITALS: BP 169/70
[2017-11-07 17:54] LABS: HEMATOCRIT 29.2 % (38.0-50.0); HEMOGLOBIN 9.7 G/DL (12.5-16.6); MCH 31.7 PG (29.0-34.0); MCHC 33.2 G/DL (30.0-36.0); MCV 95.4 FL (86-99); PLATELET COUNT 216 K/uL (156-360); RBC DIS.WIDTH-CV 13.2 % (11.8-14.6); RBC DIS.WIDTH-SD 45.7 % (39-53); RED BLOOD COUNT 3.06 M/uL (4.00-5.50); WHITE BLOOD COUNT 5.6 K/uL (4.1-10.2)
[2017-11-07 19:35] VITALS: BP 129/61
[2017-11-08 00:09] VITALS: BP 146/79
[2017-11-08 04:49] VITALS: BP 130/80
[2017-11-08 05:36] LABS: HEMATOCRIT 26.6 % (38.0-50.0); HEMOGLOBIN 8.7 G/DL (12.5-16.6); MCH 31.6 PG (29.0-34.0); MCHC 32.7 G/DL (30.0-36.0); MCV 96.7 FL (86-99); PLATELET COUNT 171 K/uL (156-360); RBC DIS.WIDTH-CV 13.5 % (11.8-14.6); RBC DIS.WIDTH-SD 47.7 % (39-53); RED BLOOD COUNT 2.75 M/uL (4.00-5.50); WHITE BLOOD COUNT 3.9 K/uL (4.1-10.2)
[2017-11-08 07:59] VITALS: BP 118/63
[2017-11-08 11:04] VITALS: BP 121/62
[2017-11-08 11:14] LABS: APPEARANCE CLEAR ((CLEAR)); BILIRUBIN NEGATIVE; BLOOD NEGATIVE; COLOR YELLOW ((YELLOW)); GLUCOSE (STRIP) NEGATIVE; KETONES NEGATIVE; LEUKOCYTES TRACE; NITRITE NEGATIVE; PROTEIN (STRIP) NEGATIVE; SPECIFIC GRAVITY 1.009 (1.000-1.030); UROBILINOGEN 0.2 MG/DL (0.2-1.0)
[2017-11-08 11:23] LABS: BACTERIA NONE SEEN /HPF; EPITHELIAL CELLS RARE /HPF; MUCUS TRACE /LPF; RED BLOOD CELLS 0-5 /HPF (0-5); UCUL ADDED? NO; WHITE BLOOD CELLS 0-5 /HPF (0-5)
[2017-11-08 15:07] VITALS: BP 138/77
[2017-11-08] MEDS ORDERED: CIPRO500 MG PO (15:19)
[2017-11-08] MEDS ORDERED: METRONIDAZOLE500 MG PO (15:20)
[2017-11-08] MEDS ORDERED: LOPERAMIDE2 MG PO (15:23)
[2017-11-08] MEDS ORDERED: BUSPAR10 MG PO (15:23)
[2017-11-08] MEDS ORDERED: MYLICON,MYLANTA80 MG PO (15:24)
[2017-11-08] MEDS ORDERED: PANTOPRAZOLE SO40 MG PO (15:24)
[2017-11-08] MEDS ORDERED: ANUCORT-HC25 MG PR (15:25)
[2017-11-08] MEDS ORDERED: CLONAZEPAM0.5 MG PO (15:27)
== END 2017-11-08 16:37 | disposition home or self-care (01) | DRG 378 ==
LOC: EME 09:37 → 4SOUTH 12:18 → EDOF 12:18 → 4SOUTH 14:00
PROVIDERS: Emergency Medicine; Family Medicine Sports Medicine; Hospitalist; Specialist
PROC: 0W3P8ZZ Control Bleeding in Gastrointestinal Tract, Via Natural or Artificial Opening Endoscopic (ICD-10-PCS; principal; 2017-11-05)
PROC: 0DJ08ZZ Inspection of Upper Intestinal Tract, Via Natural or Artificial Opening Endoscopic (ICD-10-PCS; principal; 2017-11-05)
DX: K26.4 Chronic or unspecified duodenal ulcer with hemorrhage (principal); D64.9 Anemia, unspecified; F41.1 Generalized anxiety disorder; K29.70 Gastritis, unspecified, without bleeding; K22.70 Barrett's esophagus without dysplasia; I10 Essential (primary) hypertension; K21.9 Gastro-esophageal reflux disease without esophagitis; K31.9 Disease of stomach and duodenum, unspecified; T39.395A Adverse effect of other nonsteroidal anti-inflammatory drugs [NSAID], initial encounter; K64.9 Unspecified hemorrhoids; K58.9 Irritable bowel syndrome, unspecified; K90.49 Malabsorption due to intolerance, not elsewhere classified; E78.5 Hyperlipidemia, unspecified; K44.9 Diaphragmatic hernia without obstruction or gangrene; M19.90 Unspecified osteoarthritis, unspecified site; M48.00 Spinal stenosis, site unspecified; F32.9 Major depressive disorder, single episode, unspecified; Z86.010 Personal history of colon polyps; Z87.891 Personal history of nicotine dependence; Z60.2 Problems related to living alone; Z98.1 Arthrodesis status; Z88.0 Allergy status to penicillin
CPT/HCPCS: 80048; 80048 91; 80053; 81003; 85014; 85018; 85025; 85025 91; 85027; 85610; 85730; 86850; 86900; 86901; 87177; 87493; 87506; 93005; 99281; 99285; C9113; G0378; J0744; J7030; S0030